=== PATIENT | male | born 1950 ===

== ENCOUNTER 2025-05-31 11:22 | Emergency (ER) | payer MEDICARE ==
[2025-05-31 11:32] VITALS: TEMP 97.8
[2025-05-31 11:53] LABS: MEAN PLATELET VOLUME 7.0 FL (7.4-10.4); RED CELL DISTRIBUTION WIDTH 14.3 % (11.5-14.5)
--- NOTE | 2025-05-31 12:03 | RADIOLOGY REPORT ---
EXAM: DI CHEST,SINGLE VIEW HISTORY: CP COMPARISON: None TECHNIQUE: Portable AP view of the chest was performed. FINDINGS: No pneumothorax, consolidative infiltrates, or pulmonary edema. The heart is not enlarged. There is mild thoracic spondylosis and dextroscoliosis. IMPRESSION: No acute intrathoracic process.
[2025-05-31 12:10] LABS: CREATININE 1.30 MG/DL (0.60-1.10); PRO BRAIN NATRIURETIC PEPTIDE 182 PG/ML (0-450); TOTAL CARBON DIOXIDE 31.3 MMOL/L (24-32); eGFR 54 ML/MIN
--- NOTE | 2025-05-31 12:47 | Physician Documentation ---
History of Present Illness ~ Chief Complaint: Palpitations Stated Complaint: IRREG HEART RATE Time Seen by MD: 12:45 Primary Medical Doctor: carly woodward in Mode of Arrival: POV HPI 75-year-old male presenting with palpitations He tells me that he has a long history of intermittent palpitations for the past 7 years. He had a full cardiac workup 7 years ago which was unremarkable. He was given as needed metoprolol to take for symptoms. Over the past 2 weeks he has had an increase in his palpitations. He says that they are intermittent and feel like his heart skips a beat and then has a hard beat. No syncope. No chest pain. No leg pain or swelling. No vomiting, fevers or other infectious symptoms. Medication Reconciliation Allergies: Coded Allergies: No Known Allergies (Unverified , 05/31/25) Scheduled Metoprolol Tartrate (Metoprolol Tartrate), 1 TAB PO Q12H Review of Systems Constitutional: Denies: fever Respiratory: Denies: shortness of breath, pain with breathing Cardiovascular: Reports: palpitations Physical Exam Vital Signs: Temperature: 97.8, Source: Temporal, Heart Rate: 60, Respiratory Rate: 18, BP: 120/80, Pulse Oximetry: 96 Oxygen Flow Rate: 0 Physical Exam General: This is a pleasant and overall well-appearing older man sitting calmly in bed HEENT: Atraumatic, oropharynx is moist Heart: Regular rate and rhythm, normal-appearing peripheral perfusion. Occasional PVCs on the monitor which do correlate to his symptoms Lungs: Clear breath sounds bilateral, normal work of breathing, normal oxygen saturation on room air Abdomen: Soft, nondistended Extremities: Warm and well-perfused, no edema or calf tenderness Neuro: Alert and oriented Psychiatric: Calm and cooperative with exam Progress Results/Orders Results/Orders Orders - CARLOS BOLANOS MD Chest,Single View (05/31/25 11:55) Monitor (05/31/25 11:35) Saline Lock (05/31/25 11:35) Oxygen (05/31/25 11:35) Completed Orders - CARLOS BOLANOS MD Chest,Single View (05/31/25 11:55) Cbc/Diff (05/31/25 11:35) BMP (05/31/25 11:35) PBNP (05/31/25 11:35) Electrocardiogram (05/31/25 11:35) Hs Troponin I W Calculations (05/31/25 11:35) Vital Signs 05/31/25 05/31/25 05/31/25 05/31/25 11:32 12:12 12:12 13:54 Temp 97.8 Pulse 65 60 62 Resp 18 18 17 16 B/P (MAP) 148/89 120/80 (93) 134/76 Pulse Ox 97 96 98 O2 Flow Rate 0 Laboratory Tests Test 05/31/25 11:30 White Blood Count 6.6 Red Blood Count 4.92 Hemoglobin 15.7 Hematocrit 46.1 Mean Corpuscular Volume 93.6 Mean Corpuscular Hemoglobin 31.9 H Mean Corpuscular Hemoglobin Concent 34.1 Red Cell Distribution Width 14.3 Platelet Count 282 Mean Platelet Volume 7.0 L Neutrophils (%) (Auto) 53.1 Lymphocytes (%) (Auto) 31.2 Monocytes (%) (Auto) 11.7 Eosinophils (%) (Auto) 3.1 Basophils (%) (Auto) 0.9 Neutrophils # (Auto) 3.5 Lymphocytes # (Auto) 2.1 Monocytes # (Auto) 0.8 Eosinophils # (Auto) 0.2 Basophils # (Auto) 0.1 CBC Comment Sodium Level 140 Potassium Level 4.1 Chloride Level 103 Carbon Dioxide Level 31.3 Anion Gap 6 L Blood Urea Nitrogen 21 H Creatinine 1.30 H Estimated GFR/1.73 m2 54 BUN/Creatinine Ratio 16.2 Glucose Level 113 H Calcium Level 9.1 Troponin I High Sensitivity 12 Pro-B-Type Natriuretic Peptide 182 Albumin 3.6 Chemistry Comments EKG/XRAY/CT/US/VASC/MRI EKG : Additional Comment I personally interpreted the EKG and this shows: Sinus rhythm, rate 69, QTC 407, no STEMI Chest X-Ray : Additional Comments I personally interpreted the x-ray, and it shows: No focal consolidation, no pulmonary edema, no mediastinal widening Medical Decision Making Additional information obtaine: N/A Findings na Differential Dx:Considerations: Include: angina / NM, atrial fibrillation, PSVT Differential Dx:Considerations: Include electrolyte disorder Additional Information The patient presents with palpitations. While I was speaking to him, he had PVCs on the monitor which correlated to his symptoms. His lab work is unremarkable, normal electrolytes. Overall this all appears consistent with symptomatic PVCs. This does correlate to an increasing coffee intake recently. He will be discharged with as needed metoprolol and decreased caffeine intake. He will follow up with his retirement manager if he continues to have symptoms, to discuss a heart monitor. Departure Time of Disposition: 13:40 Disposition: 01 HOME / SELF CARE / HOMELESS Impression: Primary Impression: PVCs (premature ventricular contractions) Condition: Stable Discharge Instructions: Premature Ventricular Contraction Referrals: NO PRIMARY CARE PROVIDER (PCP) Prescriptions Metoprolol Tartrate (Metoprolol Tartrate) 25 Mg Tablet 1 TAB PO Q12H for 30 Days, #60 TAB 1 Refill Prov: CARLOS BOLANOS MD 05/31/25 Education Educated: Patient Educated regarding: diagnosis, treatment, need for follow up Signature Scribe Signature: cheryl Attestation: CARLOS Pereira MD May 31, 2025 12:47
--- NOTE | 2025-05-31 12:53 | ELECTROCARDIOGRAPH REPORT ---
[facility] Test Date: 2025-05-31 Test Time: 11:28:18 Pat Name: YARI PERKINS Department: EMERGENCY ROOM Room: Gender: M [employer]: KELIN : 1950 Requested By: CARLOS BOLANOS Order Number: [id number] Reading MD: Dr. GRANT Mackay Measurements Intervals [place] Rate: 69 P: 78 UT: 162 QRS: -68 QRSD: 94 T: 28 QT: 380 QTc: 407 Interpretive Statements Sinus rhythm Left anterior fascicular block Low voltage, precordial leads Abnormal R-wave progression, late transition Electronically Signed On 06-02-2025 18:09:[address] GRANT Mackay Please click the below link to view image of tracing.
[2025-05-31] MEDS ORDERED: METO25TA6 PO (13:49)
[2025-05-31 13:54] VITALS: BP 134/76; PULSE 62; RESP 16; O2SAT 98
== END 2025-05-31 13:57 | disposition home or self-care (01) ==
LOC: ER 11:23
DX: I49.3 Ventricular premature depolarization (principal); Z79.899 Other long term (current) drug therapy
CPT/HCPCS: 36415; 71045; 80048; 83880; 84484; 85025; 93005; 99285